=== PATIENT | female | born 2000 | race Hispanic/Latino ===

== ENCOUNTER → 2022-10-06 14:51 | Outpatient (CLI) | payer OTHER, SELFPAY ==
--- NOTE | 2022-10-06 14:58 | DI.US.S_ITS ---
PROCEDURE: US OB >= 14 WEEKS FETUS INDICATIONS: 20WK ANATOMY SCAN OUTSIDE/PRIOR DATING DATA: Last menstrual period (LMP): 04/21/2022. LMP-based estimated date of delivery (PEPE): 02/21/2023. First dating scan (date and location): 10/06/2022. Estimated date of delivery (PEPE) from first dating scan: 02/19/2023. The calculations are made using the working PEPE of 02/19/2023. TECHNIQUE: Real-time scanning was performed of the fetus, with image documentation and biometric measurements. Endovaginal scanning: Not performed COMPARISON: None. FINDINGS: General: A single living intrauterine gestation is present. Presentation: Breech. Placenta: Placental position is anterior, without previa. Amniotic fluid index: 21.4 cm, normal range is 5-24 cm. Single deepest vertical pocket is 6.0 cm. heart rate: 143 beats per minute. Maternal cervical canal: 3.2 cm long. Normal lower limit is 2.5 cm. biometrics: Biparietal diameter: 20 weeks 6 days Head circumference: 20 weeks 0 day Abdominal circumference: 21 weeks 2 days Femur length: 20 weeks 1 day Clinically estimated gestational age: 20 weeks 2 days Composite gestational age from present scan: 20 weeks 4 days Estimated weight and percentile: 373 g Anatomic survey: Neuro: Ventricles are non-dilated at less than 10 mm. Cisterna magna is normal at 3-11 mm. Cerebellum is normal in size and morphology. Nuchal skin fold: Normal at less than 6 mm between 14-21 weeks gestational age. Face: Nose and lips, facial profile are normal. Spine: No evidence for spina bifida. Heart: 4-chambered heart is present, with normal ventricular outflow tracts. Diaphragm: Diaphragm is intact. Stomach: Left-sided stomach is present. Kidneys: No hydronephrosis. Normal is less than 5 mm in 2nd trimester, less than 7 mm in 3rd trimester. Cord: 3-vessel cord has orthotopic insertion. Bladder: Normal in size. Extremities: All 4 extremities identified. IMPRESSION: 1. A single living intrauterine gestation with an estimated gestational age of 20 weeks 4 days corresponding to ultrasound PEPE 02/19/2023. Ultrasound dating concordant with clinical dating. 2. Normal anatomic survey. We strive to produce accurate, complete, and clear reports of imaging services. To assist us in improving patient care, this report was composed using standard report templates and voice recognition software. Therefore, it may contain abnormal punctuation, insertions and/or omissions. Occasional wrong-word or sound-alike substitutions may occur. Though we review the report and make efforts to correct it, we do recommend that the report be read carefully in proper context to recognize any text inaccuracies. Dictated by: Ramsey Payan M.D. on 10/06/2022 at 17:13 Approved by: Ramsey Payan M.D. on 10/06/2022 at 17:18
== END ==
PROVIDERS: Referring Provider Nurse Practitioner Obstetrics & Gynecology; Visit Provider Nurse Practitioner Obstetrics & Gynecology
DX: Z34.92 Encounter for supervision of normal pregnancy, unspecified, second trimester (principal); Z3A.20 20 weeks gestation of pregnancy
CPT/HCPCS: 76811

== ENCOUNTER → 2022-11-12 19:07 | Outpatient (ROUT) | payer OTHER, SELFPAY ==
[2022-11-12 19:23] LABS: Add Manual Diff / Slide Review NO; Basophils Absolute Auto 100 /uL (0-100); Basophils Percent Auto 0.7 % (0-2); Eosinophils Absolute Auto 0 /uL (0-450); Eosinophils Percent Auto 0.4 % (2-4); Hematocrit 34.5 % (36-46); Hemoglobin 11.5 g/dL (12.0-16.0); Lymphocytes Absolute Auto 1900 /uL (1100-4500); Lymphocytes Percent Auto 18.8 % (25-40); Mean Corpuscular HGB Conc 33.5 % (30-36); Mean Corpuscular Hemoglobin 30.9 PG (26-34); Mean Corpuscular Volume 92.3 fL (80-100); Monocytes Absolute Auto 600 /uL (0-900); Neutrophils Absolute Auto 7300 /uL (1500-7000); Neutrophils Percent Auto 74.1 % (50-75); Platelet Count 303 X10^3/uL (150-400); Red Blood Cell Count 3.74 X10^6/uL (4.0-5.2); White Blood Cell Count 9.9 X10^3/uL (4.5-11.0)
== END ==
PROVIDERS: Visit Provider Advanced Practice Midwife
DX: Z34.01 Encounter for supervision of normal first pregnancy, first trimester (principal)
CPT/HCPCS: 85025

== ENCOUNTER 2023-02-10 10:52 | Observation (INO) | payer OTHER, MEDICAID, SELFPAY ==
--- NOTE | 2023-02-10 11:20 | PM.OBTRLD ---
Visit Information Visit Information Date of evaluation: 02/10/23 Primary OB Provider: Kaylah Scruggs On-call OB Provider: Kaylah Scruggs Reason for Evaluation: Yes non-stress test Comments/Additional reasons for admission: Radha has been having upper abdominal pain, diarrhea and vomiting today. Went to [facility] ED in [facility] where they did labs showing normal enzymes and low hematocrit (29) and hemoglobin (9.6). All other labs in CBC and CMP WNL except for mildly low sodium likely resolved with 1L NaCL IV hydration she received there. (see lab details below). Vital Signs Vital Signs: 117/71 93 35.9C [facility] Medical History (Updated 02/10/23 @ 15:02 by Kaylah Scruggs CNM, MINDY) Supervision of normal first in third trimester Family History Other Cancer Depression Diabetes mellitus Social History (Updated 02/10/23 @ 11:29 by Kaylah Scruggs CNM, MINDY) marital status: unmarried,living together number of children: 0 household members: significant other lives independently: Yes caregiver/support person: No education level: high school occupational status: employed do you feel safe at home: Yes Smoking Status: Never smoker alcohol intake: never substance use type: does not use Review of Systems Review of Systems Narrative: All negative except as mentioned above. Exam Vital Signs (past 8 hours): see above Const General: healthy appearing and comfortable Cardio Rate: regular rate GI Inspection: normal to inspection Skin General: no rashes or lesions noted Neuro General: patient oriented x3 Extrem General: normal to inspection, full ROM and capillary refill normal Psych Appearance: grossly normal Mental Status: mental status grossly normal Objective Labs 02/10/23 11:28 Labs: From ED 02/10/23: WBC 10.1 HGB 9.6 HCT 29.5 PLT 239 Na 135 Glucose 107 Creatinine 0.77 ALT 22 AST 24 Evaluation Evaluation Baseline heart rate: 125 Variability: Moderate (11-25) monitor accelerations: Present Monitor Decelerations: Absent Category of Tracing: Reactive Comments: Contractions mild, irregular, painless Diagnosis, Plan/Disposition Final Diagnosis (1) Anemia affecting in third trimester: Status: Acute Problem details: CBC at NOB and third trimester labs showed normal Hct/Hcb. Repeat CBC here to confirm anemia at 38 weeks (2) Vomiting: Status: Acute Problem details: improved since receiving ondansetron 4 mg IV at ED (3) Diarrhea: Status: Acute Problem details: GI virus in third trimester (4) Supervision of normal first in third trimester: Status: Acute (5) Abdominal pain: Status: Acute Problem details: improved since receiving IV hydration at ED Plan/Disposition Plan: consider IV iron due to late gestational age if anemia of is confirmed today, given after labs confirmed anemia. d/c home with sublingual ondansetron 4mg to use PRN and usual term warning signs. PNV for tomorrow cancelled due to illness. Reviewed self care with GI virus. Next PNV scheduled for PEPE. Instructed Radha to call with any concerns or if she desires appointment sooner.
[2023-02-10 11:42] LABS: Hematocrit 30.4 % (36-46); Mean Corpuscular Hemoglobin 27.6 PG (26-34); Mean Corpuscular Volume 83.6 fL (80-100); Red Blood Cell Count 3.64 X10^6/uL (4.0-5.2); Red Cell Distribution Width 14.6 % (11.6-14.8); White Blood Cell Count 13.2 X10^3/uL (4.5-11.0)
[2023-02-10 13:01] LABS: Ferritin 6 ng/mL (6-137)
[2023-02-10] MEDS: IRON SUCROSE 200 MG in SODIUM CHLORIDE 0.9% 100 ML 220 MG IV (14:16)
== END 2023-02-10 14:15 | disposition home or self-care (01) ==
PROVIDERS: Admitting Provider Advanced Practice Midwife; PCP Nurse Practitioner Family; Referring Provider Advanced Practice Midwife; Visit Provider Advanced Practice Midwife
DX: O99.013 Anemia complicating pregnancy, third trimester (principal); O21.9 Vomiting of pregnancy, unspecified; O26.893 Other specified pregnancy related conditions, third trimester; R19.7 Diarrhea, unspecified; R10.9 Unspecified abdominal pain; D64.9 Anemia, unspecified; Z3A.38 38 weeks gestation of pregnancy
CPT/HCPCS: 36415; 59025; 82728; 85027; 96360; G0378; G0379; J1756

== ENCOUNTER 2023-03-04 07:20 | Inpatient (IN) | payer OTHER, SELFPAY ==
[2023-03-04 08:22] LABS: Add Manual Diff / Slide Review NO; Basophils Absolute Auto 0 /uL (0-100); Basophils Percent Auto 0.2 % (0-2); Eosinophils Absolute Auto 0 /uL (0-450); Eosinophils Percent Auto 0.2 % (2-4); Hematocrit 32.9 % (36-46); Hemoglobin 10.7 g/dL (12.0-16.0); Lymphocytes Absolute Auto 2100 /uL (1100-4500); Mean Corpuscular HGB Conc 32.7 % (30-36); Mean Corpuscular Hemoglobin 27.1 PG (26-34); Mean Corpuscular Volume 83.1 fL (80-100); Monocytes Absolute Auto 1000 /uL (0-900); Monocytes Percent Auto 8.9 % (3-14); Neutrophils Absolute Auto 8500 /uL (1500-7000); Neutrophils Percent Auto 72.7 % (50-75); Platelet Count 248 X10^3/uL (150-400); Red Blood Cell Count 3.96 X10^6/uL (4.0-5.2); Red Cell Distribution Width 17.4 % (11.6-14.8); White Blood Cell Count 11.6 X10^3/uL (4.5-11.0)
[2023-03-04] MEDS: LACTATED RINGERS 1,000 ML 100 ML IV ×2 (08:31→18:16)
[2023-03-04] MEDS: OXYTOCIN PREMIX 30 UNIT/500 ML PLAST..BAG IV (08:31)
--- NOTE | 2023-03-04 10:23 | PM.OBHP.1 ---
OB HPI Date/Time Date of admission: 03/04/23 Date Patient Seen: 03/04/23 Time Patient Seen: 07:30 History of Present Condition Chief complaint: INDUCTION : 1 Para: 0 Estimated Date of Delivery: 02/21/23 Estimated Gestational Age (weeks): 41.4wk Narrative: Radha Tse is a 22 year old female @ [id number] by LMP concordant with 9wk US. Here for post dates IOL. Had a Salas balloon placed in clinic yesterday afternoon, followed by contractions and spotting and the balloon came out at 0400. She was able to get some sleep. Feeling FM. No leaking of fluid or continued vaginal bleeding. Continues to feel moderate contractions every 10 minutes. Uncomplicated care with CNMs. Desires low intervention . is present and supportive. Indications Indication for induction OB: post dates History of Present care: good care, initiated at week # (9), number of visits (12) and pounds weight gain (46) Dating criteria: LMP confirmed by 1st trimester US Obstetrical complications: none Medical complications: none Preadmission Labs Blood type: A (+) positive -: Antibody screen: negative, GBS status: negative, HBsAG: negative, HIV: negative and RPR/VDLR: negative -: Rubella: immune and Varicella: not immune HCT: 34.5 HCAB: negative 1 hr GTT: 128 Evaluation Evaluation Baseline heart rate: 135 Variability: Moderate (11-25) monitor accelerations: Present Monitor Decelerations: Absent Contraction Frequency (minutes): 10 Uterine Contraction Intensity: Mild Status: Category l Dilation (cm): 5 Effacement (%): 80 Dilation: >/=5 cm Effacement: >/=80% station: -2 Position of cervix: posterior Consistency: soft Traore score: 9 PFSH Medical History Supervision of normal first in third trimester Family History Other Cancer Depression Diabetes mellitus Social History marital status: unmarried,living together number of children: 0 household members: significant other lives independently: Yes caregiver/support person: No education level: high school occupational status: employed do you feel safe at home: Yes Smoking Status: Never smoker alcohol intake: never substance use type: does not use Meds Home Medications and Allergies Allergies Allergy/AdvReac Type Severity Reaction Status Date / Time No Known Drug Allergies Allergy Unverified 02/10/23 11:18 Review of Systems Review of Systems ROS: Yes All systems reviewed with the patient and are negative except as otherwise documented OB Exam Vital signs Blood Pressure: 111/70 Pulse Rate: 89 Respiratory Rate: 16 Temperature: 98.4 F Resp Effort & Inspection: normal respiratory effort and able to speak in complete sentences Auscultation: clear to auscultation bilaterally Cardio Rate: regular rate Rhythm: regular rhythm Heart Sounds: S1 normal and S2 normal Presentation: vertex Objective Labs 03/04/23 07:45 Labs: Laboratory Results - last 24 hr 03/04/23 03/04/23 07:45 07:45 WBC 11.6 H RBC 3.96 L Hgb 10.7 L Hct 32.9 L MCV 83.1 MCH 27.1 MCHC 32.7 RDW 17.4 H Plt Count 248 Neut % (Auto) 72.7 Lymph % (Auto) 18.0 L [place] % (Auto) 8.9 Eos % (Auto) 0.2 L Baso % (Auto) 0.2 Neut # (Auto) 8500 H Lymph # (Auto) 2100 [place] # (Auto) 1000 H Eos # (Auto) 0 Baso # (Auto) 0 Blood Type A Positive Antibody Screen Negative Assessment and Plan Assessment and Plan Assessment and Plan narrative: A: Term nullipara IOL for post dates Favorable cervix No indication for GBS prophylaxis Cat I FHR P: Admit, routine orders. Pitocin, per protocol. Continuous EFM. Labor support, PRN. Reassess 2 hours after breathing through strong contractions.
[2023-03-04 12:29] VITALS: BP 111/70; PULSE 89; RESP 16; TEMP 36.9
--- NOTE | 2023-03-04 14:14 | PM.OBPNLAB ---
Date/Time Date Patient Seen: 03/04/23 Time Patient Seen: 13:15 Pain Control Pain control: tolerating well Comments: Breathing through strong contractions every 3 minutes. Sitting on a ball, supported by her partner and her mother. Scant spotting, occasionally. No leaking of fluid. Not interested in a cervical exam at this time. BP 129/74mmHg, HR 104bpm, RR 16/min, T 36.7C Temporal Pelvic Exam Effacement (%): 80 station: -2 Comments: CE deferred Contractions Contractions on admission: irregular Pitocin rate (mU/min): 4 Contraction frequency (min): 2 Contraction duration (min): 1 Contraction pattern: Regular Contraction intensity: Mild Status status: Category l Heart Rate Baseline: 145 Monitor Accelerations: Present Monitor Decelerations: Absent Monitor Variability: Moderate Assessment and Plan Assessment: active labor Plan: continuous present management (continue pitocin titration to maintain adequate contraction pattern) Comments: Encourage CE within the next 4 hours. Continue labor support.
[2023-03-04 15:27] VITALS: BP 115/65
--- NOTE | 2023-03-04 16:19 | PM.OBPNLAB ---
Date/Time Date Patient Seen: 03/04/23 Time Patient Seen: 16:00 Pain Control Pain control: tolerating well Comments: Continues to breathe through strong contractions every 2-3 minutes. Has been sitting up on the bed and on the ball. Extremely tired. VS: BP 132/72mmHg, HR 88, T 36.8 C Temporal Pelvic Exam Dilation (cm): 6 Effacement (%): 90 station: -2 Amniotic membrane status: Intact Contractions Monitor mode: External Pitocin rate (mU/min): 6 Contraction frequency (min): 2 Contraction duration (min): 1 Contraction pattern: Regular Contraction intensity: Mild Status status: Category ll (overall reassuring) Heart Rate Baseline: 140 Monitor Accelerations: Present Monitor Decelerations: Variable Monitor Variability: Moderate Assessment and Plan Assessment: active labor Plan: continuous present management Comments: Encouraged tub, which she is planning to move to. Reassess in 4 hours or sooner, PRN.
[2023-03-04] MEDS: KETOROLAC 30 MG/ML VIAL IM (20:53)
--- NOTE | 2023-03-04 21:16 | PM.OBPRVD ---
Events: Labor Induction (post dates) Labor & Delivery Delivery date: 03/04/23 Intrapartal Events: None Cervical ripening method: per Salas bulb protocol Induction method: per pitocin protocol Delivery augmentation: pitocin Delivery monitor: external FHT and external uterine Route of delivery: Episiotomy description: None L&D Laceration Description: Perineal - 2nd Degree and Labial (Right) Delivery repair: chromic (3.0) Quantitative Blood Loss: 175 Anesthesia Type: Epidural Narrative: Radha labored well without augmentation or anesthesia. Maximum pitocin was 7mu/min. FHR was primary Cat I throughout labor and second stage. Radha began to feel a spontaneous urge to push, moved to hands and knees on the bed and was presumed complete. SROM for clear fluid 17 minutes prior to the . Strong maternal efforts led to NSVB of a vigorous baby boy in direct OA position. FOB and CNM with hands on at . Compound right arm. There was no nuchal cord and the shoulders delivered without additional maneuvers. Copious terminal meconium noted. 1 hour 7 minute total second stage. Radha was assisted to her knees and her baby was passed through her legs to her arms. Radha, with baby in arms, was assisted to her back in bed. After cessation of pulsation, the cord was double clamped by CNM and cut by FOB. Cord blood sample was obtained. Remaining 30 units of pitocin in 500mL LR was started at 250mL/hr for AMTSL. After cessation of pulsation, the cord was double clamped by CNM and cut by FOB. Gentle cord traction and a single maternal push led to spontaneous, Schultze, delivery of an apparenlty intatct placenta, membranes and 3VC. Fundus immediately firma nd bleeding minimal. A right labial and 2nd degree perineal laceration was repaired with 3.0 Chromic in the usual fashion. QBL 175mL. Both mother and baby stable and skin to skin as I left the room. Peds service to admit the baby. Anticipate d/c to home in 18 hours. Baby 1: gender: Male Presentation: vertex Position: Right Occiput Anterior Placenta delivery description: Spontaneous Cord Vessel Description: 3 Vessels score (1 min): 9 score (5 min): 9 weight: 3.978 kg Plan for aftercare: Routine care
[2023-03-04] MEDS: LIDOCAINE 1% (PF) 5 ML INJ (21:58)
[2023-03-05] MEDS: DERMOPLAST SPRAY 20% 60 ML 1 SPRAY TOP (00:35)
[2023-03-05] MEDS: IBUPROFEN 600 MG TABLET PO (03:36)
[2023-03-05] MEDS: ACETAMINOPHEN 325 MG TABLET 650 MG PO (03:37)
--- NOTE | 2023-03-05 08:25 | PM.OBDS.1 ---
Discharge Providers Provider Date of admission: 03/04/23 07:20 Discharge Date: 03/05/23 Primary care physician: MINDY Díaz FNP-C Consults: 03/05/23 21:16 Consult to Air Pollution Control Engineer Routine Comment: Discharge provider: Kathleen Hinojosa CNM Summary Hospital Course Date Patient Seen: 03/05/23 Time Patient Seen: 08:25 Diagnoses: O70.1 Hospital Course: PPD1: Stable s/p NSVB with right laboal and second degree perineal laceration. Voiding, ambulating and independently overnight. Tolerating a general diet. Minima pain is well controlled with PO medications. Vaginal bleeding is decreased and without clots. Considering d/c to home tonight as long as baby is doing well. Peripartum Data Infant Delivery Method: Natural Vaginal Laceration Description: Perineal - 2nd Degree and Labial Episiotomy description: None Procedures: O70.1 complications: none 1: Gender: Male Disposition of : home Discharge Diagnosis (1) Second degree perineal laceration during delivery: Status: Acute Status at Discharge Cognitive/behavioral status at discharge: oriented and calm Functional status at discharge: independent ambulation Overall status at discharge: patient is progressing back to baseline Time Spent with Patient Time attestation: Total time spent providing and/or coordinating discharge services: Objective Labs 03/04/23 07:45 Labs: Laboratory Results - last 24 hr 03/04/23 07:45 Blood Type A Positive Antibody Screen Negative Exam Vital Signs (past 8 hours): BP 119/76mmHg, HR 91bpm, RR 16, T 98.6F Temporal Other: Fundus firm @ U-1, lochia small, no clots. Perineum well approximated, mild edema. Discharge Plan Discharge Plan Patient Disposition: Home Discharge orders & Medications Prescriptions: New ibuprofen 600 mg Tablet 600 mg PO Q6HR PRN (Reason: Pain, Mild (1-3)) Qty: 60 0RF No Action No Known Home Medications Follow up/Referrals: Karlee Ozuna ARNP, FNP-C [Primary Care Provider] - Kathleen Hinojosa CNM [[employer] Service Sprinkler Helper] - (Follow-up at 2 weeks and 6 week , as scheduled. Appointments in your email. ) Diet/Activity/Treatments Diet: Diet as Tolerated Activity: pelvic rest x 6 weeks Skin/Wound/Dressing Care Report to your healthcare provider any signs of infection, such as:: chills, fever, increased pain, unusual drainage and unusual redness Visit Report/Discharge Packet Instructions: DI for Depression Stand Alone Forms: Patient Portal/API, Stroke Signs & Symptoms Discharge Data Primary Care Provider: Karlee Ozuna
[2023-03-05 15:39] VITALS: BP 135/79; PULSE 96; RESP 16; TEMP 36.3
== END 2023-03-05 18:30 | disposition home or self-care (01) | DRG 807 ==
PROVIDERS: Admitting Provider Nurse Practitioner Obstetrics & Gynecology; PCP Nurse Practitioner Family; Referring Provider Nurse Practitioner Obstetrics & Gynecology; Visit Provider Nurse Practitioner Obstetrics & Gynecology
DX: O48.0 Post-term pregnancy (principal); Z37.0 Single live birth; Z3A.41 41 weeks gestation of pregnancy; O70.1 Second degree perineal laceration during delivery
CPT/HCPCS: 36415; 59050; 85025; 86850; 86900; 86901; G0379; J1885; J2590

== ENCOUNTER → 2024-12-05 06:51 | Outpatient (CLI) | payer OTHER, SELFPAY ==
--- NOTE | 2024-12-05 06:54 | DI.US.S_ITS ---
PROCEDURE: US OB >= 14 WEEKS FETUS INDICATIONS: 20 Weeks anatomy scan OUTSIDE/PRIOR DATING DATA: Last menstrual period (LMP): 06/30/24. LMP-based estimated date of delivery (PEPE): 04/23/25. First dating scan (date and location): 09/05/24. Estimated date of delivery (PEPE) from first dating scan: 04/23/25. The calculations are made using the working PEPE of 04/23/25. TECHNIQUE: Real-time scanning was performed of the fetus, with image documentation and biometric measurements. Endovaginal scanning: Not performed COMPARISON: [facility], OB >= 14 WEEKS FETUS, 10/06/2022, 15:21. FINDINGS: General: A single living intrauterine gestation is present. Presentation: Breech. Placenta: Placental position is posterior , without previa. Amniotic fluid index: 12.9 cm, normal range is 5-24 cm. Single deepest vertical pocket is 3.5 cm. heart rate: 140 beats per minute. Maternal cervical canal: Closed and 4.2 cm long. Normal lower limit is 2.5 cm. biometrics: Biparietal diameter: 4.6 cm, 19 weeks six days Head circumference: 17.3 cm, 19 weeks six days Abdominal circumference: 16.9 cm, 21 weeks six days Femur length: 3.2 cm, 20 weeks 0 days Clinically estimated gestational age: 20 weeks one day Composite gestational age from present scan: 20 weeks three days Estimated weight and percentile: 384 g, 85th percentile Anatomic survey: Neuro: Ventricles are non-dilated at less than 10 mm. Cisterna magna is normal at 3-11 mm. Cerebellum is normal in size and morphology. Nuchal skin fold: Normal at less than 6 mm between 14-21 weeks gestational age. Face: Nose and lips, facial profile are normal. Spine: No evidence for spina bifida. Heart: 4-chambered heart is present, with normal ventricular outflow tracts. Diaphragm: Diaphragm is intact. Stomach: Left-sided stomach is present. Kidneys: No hydronephrosis. Normal is less than 5 mm in 2nd trimester, less than 7 mm in 3rd trimester. Cord: 3-vessel cord has orthotopic insertion. Bladder: Normal in size. Extremities: All 4 extremities identified. IMPRESSION: Single live intrauterine with estimated weight at the 85th percentile. Appropriate and symmetric growth, in good agreement with the clinically assigned gestational age. Normal anatomy. Closed cervix and normal amniotic fluid volume. We strive to produce accurate, complete, and clear reports of imaging services. To assist us in improving patient care, this report was composed using standard report templates and voice recognition software. Therefore, it may contain abnormal punctuation, insertions and/or omissions. Occasional wrong-word or sound-alike substitutions may occur. Though we review the report and make efforts to correct it, we do recommend that the report be read carefully in proper context to recognize any text inaccuracies. Dictated by: Maria De Jesus Marrero M.D. on 12/05/2024 at 11:49 Approved by: Maria De Jesus Marrero M.D. on 12/05/2024 at 11:54
== END ==
PROVIDERS: PCP Nurse Practitioner Family; Referring Provider Nurse Practitioner Obstetrics & Gynecology; Visit Provider Nurse Practitioner Obstetrics & Gynecology
DX: Z34.92 Encounter for supervision of normal pregnancy, unspecified, second trimester (principal); Z3A.20 20 weeks gestation of pregnancy
CPT/HCPCS: 76811

== ENCOUNTER 2025-04-21 04:11 | Inpatient (IN) | payer OTHER, SELFPAY ==
--- NOTE | 2025-04-21 04:16 | P.HPOB_ITS ---
OB HPI Date/Time Date of admission: 04/21/25 Date Patient Seen: 04/21/25 Time Patient Seen: 04:16 History of Present Condition Chief complaint: Labor : 2 Para: 1 Estimated Date of Delivery: 04/23/25 Estimated Gestational Age (weeks): 39.5 Narrative: Radha Tse is a 24 year old female @ 39wks 5 days by 7wk US who presents for evaluation of labor. Scheduled elective IOL for this morning started yesterday with a Salas balloon placed in clinic at 1630. Balloon came out within an hour. Mild cramping persisted until becoming strong around 0300 this morning. +FM. No vaginal bleeding or leaking of fluid. Uncomplicated care with CNMs. Desires low intervention . History of Present care: good care, initiated at week # (7), number of visits (11) and pounds weight gain (36) Dating criteria: based on 1st trimester US only Ultrasounds: normal 1st trimester US and normal mid trimester US Obstetrical complications: none Medical complications: none Preadmission Labs Blood type: A (+) positive -: Antibody screen: negative, GBS status: positive, HBsAG: negative, HIV: negative and RPR/VDLR: negative -: Chlamydia screen: not detected and Gonorrhea screen: not detected -: Rubella: immune and Varicella: not immune HCT: 34.6 HCAB: negative PAP: Normal 1 hr GTT: 136 Prior (ies) History: 03/04/2023: NSVB @ 41.4 (post dates IOL), 4hr labor, 2nd degree, no anesthesia, 8lb 13oz male Hx # Term Pregnancies: 1 Hx # Pregnancies: 0 Number of Living Children: 1 Multiple births: 0 Spontaneous abortions: 0 Ectopic pregnancies: 0 Elective abortions: 0 Evaluation Evaluation Baseline heart rate: 120 Variability: Moderate (6-25) monitor accelerations: Present Monitor Decelerations: Early and Late (single) Contraction Frequency (minutes): 1 Uterine Contraction Intensity: Strong/Firm Status: Category ll Dilation (cm): 7 Effacement (%): 80 Dilation: >/=5 cm Effacement: >/=80% station: -2 Position of cervix: mid Consistency: soft Tarore score: 10 [facility] Medical History Supervision of normal first in third trimester Family History Other Cancer Depression Diabetes mellitus Social History marital status: unmarried,living together number of children: 0 household members: significant other lives independently: Yes caregiver/support person: No education level: high school occupational status: employed do you feel safe at home: Yes Smoking Status: Never smoker alcohol intake: never substance use type: does not use Meds Home Medications and Allergies Home Medications ?Medication ?Instructions ?Recorded ?Confirmed ?Type ibuprofen 600 mg tablet 600 mg PO Q6HR PRN Pain, Mil d 03/05/23 04/21/25 Rx (1-3) #60 tabs Allergies Allergy/AdvReac Type Severity Reaction Status Date / Time No Known Drug Allergies Allergy Verified 04/21/25 04:35 Review of Systems Review of Systems ROS: Yes All systems reviewed with the patient and are negative except as otherwise documented OB Exam Vital signs Blood Pressure: 130/76 Pulse Rate: 96 Temperature: 97.3 F Resp Effort & Inspection: normal respiratory effort and able to speak in complete sentences Auscultation: clear to auscultation bilaterally Cardio Rate: regular rate Rhythm: regular rhythm Heart Sounds: S1 normal and S2 normal Presentation: vertex Estimated Weight (lbs): 8 Objective Labs 04/21/25 04:40 Assessment and Plan Assessment and Plan Assessment and Plan narrative: A: Term primipara Active labor GBS prophylaxis indicated Cat II FHR- overall reassuring P: Admit, routine labor orders with ampicillin for GBS prophylaxis now. May switch to intermittent auscultation. Continuous labor support. Anticipate second stage soon. Time-Based Coding :: [TOTAL MINUTES] spent with patient and on the chart (including review of chart, obtaining history, exam, reviewing outside data, placing orders, documenting exam and treatment plan, and counseling patient) on [DATE].
[2025-04-21 04:32] VITALS: BP 130/76
[2025-04-21 04:38] VITALS: BP 130/76; PULSE 96; TEMP 36.3
[2025-04-21] MEDS: LACTATED RINGERS 1,000 ML 100 ML IV (04:46)
[2025-04-21] MEDS: AMPICILLIN 2,000 MG in SODIUM CHLORIDE 0.9% 100 ML 200 MG IV (04:47)
[2025-04-21 05:06] LABS: Add Manual Diff / Slide Review NO; Basophils Absolute Auto 0 /uL (0-100); Basophils Percent Auto 0.2 % (0-2); Eosinophils Absolute Auto 0 /uL (0-450); Eosinophils Percent Auto 0.3 % (2-4); Hematocrit 34.4 % (36-46); Hemoglobin 11.6 g/dL (12.0-16.0); Lymphocytes Absolute Auto 3100 /uL (1100-4500); Lymphocytes Percent Auto 30.6 % (25-40); Mean Corpuscular HGB Conc 33.8 % (30-36); Mean Corpuscular Volume 88.7 fL (80-100); Monocytes Absolute Auto 800 /uL (0-900); Monocytes Percent Auto 8.1 % (3-14); Neutrophils Absolute Auto 6200 /uL (1500-7000); Neutrophils Percent Auto 60.8 % (50-75); Platelet Count 209 X10^3/uL (150-400); Red Blood Cell Count 3.87 X10^6/uL (4.0-5.2); Red Cell Distribution Width 14.3 % (11.6-14.8); White Blood Cell Count 10.1 X10^3/uL (4.5-11.0)
[2025-04-21] MEDS: AMPICILLIN 1,000 MG in SODIUM CHLORIDE 0.9% 100 ML 200 MG IV (08:38)
[2025-04-21] MEDS: OXYTOCIN PREMIX 30 UNIT/500 ML PLAST..BAG 95 UNIT IV (09:36)
--- NOTE | 2025-04-21 09:51 | PM.OBPRVD ---
Labor & Delivery Delivery date: 04/21/25 Delivery Time: 09:31 Intrapartal Events: None Cervical ripening method: per Salas bulb protocol Induction method: none Delivery augmentation: rupture of membranes Delivery monitor: external FHT Route of delivery: Episiotomy description: None L&D Laceration Description: Perineal - 1st Degree Delivery repair: chromic (3.0) Quantitative Blood Loss: 243 Anesthesia Type: None Narrative: Salas balloon for elective IOL resulted in spontaneous labor overnight with rapid progress, adequate treatment for GBS and no anesthesia. At 0750, Radha felt the urge to push and was presumed complete at that time. Strong maternal effort with position changes, coaching, and encouragement over an approximately 1 hour, 40 minute second stage led to NSVB of a vigorous baby girl. Female was delivered via somersault maneuver and caught by Leon with CNM and SNM hands on assisting. Head and shoulders were delivered easily with two maternal pushes and no additional maneuvers. Loose reducible nuchal cord present. [place] placed on maternal abdomen for drying and skin to skin. Apgars 9 and 10. 30 units of pitocin in 500mL LR was started for AMTSL. After cessation of pulsation, the cord was double clamped by SNM and cut by FOB. Cord blood sample was collected. Spontaneous delivery, via Schultze maneuver of an apparently intact placenta, membranes and 3 vessel cord. Fundus immediately firm and bleeding scant. A first-degree perineal laceration was noted. Laceration was repaired with 3.0 chromic under adequate 1% lidocaine local. Edges were well-approximated and hemostatic. QBL 243mL. Mother and baby stable and skin to skin as I left the room. Baby 1: Infant gender: Female Presentation: vertex Position: Left Occiput Posterior Placenta delivery description: Spontaneous and Normal Configuration Cord Vessel Description: 3 Vessels, Nuchal Cord and Loose score (1 min): 9 score (5 min): 10 weight: 3.575 kg Plan for aftercare: Routine care
[2025-04-21] MEDS: KETOROLAC 30 MG/ML VIAL IV (10:10)
[2025-04-21] MEDS: DERMOPLAST SPRAY 20% 60 ML 1 SPRAY TOP (10:14)
[2025-04-21] MEDS: WITCH HAZEL/GLYCERIN PADS 1 EACH TOP (10:14)
--- NOTE | 2025-04-22 07:10 | P.DS_ITS ---
Discharge Providers Provider Date of admission: 04/21/25 04:11 Discharge Date: 04/22/25 Primary care physician: MINDY Díaz FNP-C Consults: 04/21/25 10:01 Consult to Senior Software Engineering Manager Routine Comment: Discharge provider: Kathleen Hinojosa CNM Summary Hospital Course Date Patient Seen: 04/22/25 Time Patient Seen: 07:11 Diagnoses: O70.0 Hospital Course: PPD1: Stable s/p NSVB. Voiding, ambulating and independently. Tolerating a general diet. Pain is tolerable, declining oral medication. Vaginal bleeding is light without clots. She is eager for discharge to home this morning with her daughter. Peripartum Data Delivery Method: Natural Vaginal Laceration Description: Perineal - 1st Degree Episiotomy description: None Procedures: o70.0 complications: none 1: Gender: Female Discharge Diagnosis (1) First degree perineal laceration during delivery: Start Date: 04/21/25 Start Time: 09:31 Status: Acute Status at Discharge Cognitive/behavioral status at discharge: oriented and calm Functional status at discharge: independent ambulation Overall status at discharge: patient is progressing back to baseline Time Spent with Patient Time attestation: Total time spent providing and/or coordinating discharge services: Objective Labs 04/21/25 04:40 Exam Vital Signs (past 8 hours): BP 112/72, HR 71bpm, RR 16, T 97.7F Temporal, SpO2 99% on RA Other: Fundus firm @ U-1, lochia small. Perineum well approximated. Psych Mood: congruent mood Affect: normal affect Discharge Plan Discharge Plan Patient Disposition: Home Discharge orders & Medications Prescriptions: Continued ibuprofen 600 mg Tablet 600 mg PO Q6HR PRN (Reason: Pain, Mild (1-3)) 14 Days Qty: 60 0RF Follow up/Referrals: Kathleen Hinojosa CNM [Advanced Track Repair Person, HOTEL OR MOTEL MANAGER] Referral Note: Follow-up in 2 weeks (by phone call) and 6 weeks (in office) as scheduled (appointments in your email). Karlee Ozuna ARNP, FNP-C [Primary Care Provider, Family Practice] Diet/Activity/Treatments Diet: Diet as Tolerated and Regular Activity: bed rest x2 weeks, no heavy lifting x4 Skin/Wound/Dressing Care Report to your healthcare provider any signs of infection, such as:: chills, fever, increased pain, unusual drainage and unusual redness Visit Report/Discharge Packet Instructions: DI for Depression Stand Alone Forms: Patient Portal/API, Stroke Signs & Symptoms Discharge Data Primary Care Provider: Karlee Ozuna
[2025-04-22 10:04] VITALS: BP 116/72; PULSE 72; RESP 15; TEMP 36.8
== END 2025-04-22 08:51 | disposition home or self-care (01) | DRG 807 ==
PROVIDERS: Admitting Provider Nurse Practitioner Obstetrics & Gynecology; PCP Nurse Practitioner Family; Referring Provider Nurse Practitioner Obstetrics & Gynecology; Visit Provider Nurse Practitioner Obstetrics & Gynecology
DX: O99.824 Streptococcus B carrier state complicating childbirth (principal); Z37.0 Single live birth; Z3A.39 39 weeks gestation of pregnancy; O70.0 First degree perineal laceration during delivery; O76 Abnormality in fetal heart rate and rhythm complicating labor and delivery
CPT/HCPCS: 36415; 59050; 85025; 86850; 86900; 86901; G0379; J0290; J1885; J2590